=== PATIENT | male | born 1960 | race Caucasian/White ===

== ENCOUNTER 2019-05-31 09:29 | Emergency (ER) | payer MEDICAID, MEDICARE ==
--- OUTSIDE RECORDS SUMMARY | 2019-05-31 09:47 | XMS REPORT | Summary of Care ---
:1960 Author Organization [facility] Address [address] [place] [address] Care Team Providers Name Role Phone Pcp, No Primary Care Provider Unavailable Reason for Visit Reason Comments ED To ED Transfer Encounter Details Date Type Department Care Team Description 05/27/2019 Emergency EMERGENCY DEPARTMENT Josiah Herr, Closed fracture of sternum, unspecified portion of sternum, initial encounter (Primary Dx); [address] [facility] Closed fracture of tenth thoracic vertebra, unspecified fracture morphology, [place] [address] [address] [facility] [phone] [place] [address] [phone] Allergies No Known Allergiesdocumented as of this encounter (statuses as of 05/27/2019) Medications Medication Sig Dispensed Refills Start Date End Date Status HYDROcodone-acetamino Take 1 tablet by 12 tablet 0 05/27/2019 05/30/2019 Active phen (LORTAB) 5-325 mouth every 6 MG per (six) hours as tabletIndications: needed for Pain Closed fracture of (acute) for up to sternum, unspecified 3 days, Max Daily portion of sternum, Dose: 4 tablets initial encounter documented as of this encounter (statuses as of 05/27/2019) Active Problems Problem Noted Date Closed fracture of fourth thoracic vertebra with routine healing 05/27/2019 Closed fracture of body of sternum with routine healing 05/27/2019 documented as of this encounter (statuses as of 05/27/2019) Social History Tobacco Use Types Packs/Day Years Used Date Never Smoker 0 Alcohol Use Drinks/Week oz/Week Comments Yes occ Sex Assigned at Date Recorded Not on file Job Start Date Occupation Industry Not on file Not on file Not on file Travel History Travel Start Travel End No recent travel history available. documented as of this encounter Last Filed Vital Signs Vital Sign Reading Time Taken Comments Blood Pressure 110/73 05/27/2019 9:13 PM EDT Pulse 97 05/27/2019 9:13 PM EDT Temperature 36.8 05/27/2019 9:13 PM EDT C (98.2 F) Respiratory Rate 16 05/27/2019 9:13 PM EDT Oxygen Saturation 99% 05/27/2019 9:13 PM EDT Inhaled Oxygen Concentration - - Weight 90.7 kg (200 lb) 05/27/2019 2:48 PM EDT Height 185.4 cm (6' 1") 05/27/2019 2:48 PM EDT Body Mass Index 26.39 05/27/2019 2:48 PM EDT documented in this encounter Discharge Instructions AttachmentsThe following attachments cannot be sent through Care Everywhere.Bones, How They Heal (Portuguese)Fracture, Neck or Spine (Broken Neck or Spine) (Portuguese)documented in this encounter Plan of Treatment Name Type Priority Associated Diagnoses Date/Time EKG 12 lead ECG STAT 05/27/2019 4:12 PM EDT 1ED EKG Interpretation ECG Routine 05/27/2019 4:38 PM EDT documented as of this encounter Procedures Procedure Name Priority Date/Time Associated Comments Diagnosis XR THORACIC SPINE AP STAT 05/27/2019 8:40 Results for this AND LATERAL PM EDT procedure are in the results section. CT THORACIC SPINE STAT 05/27/2019 6:26 Results for this WITHOUT CONTRAST 79950 PM EDT procedure are in the results section. POCT ISTAT TROPONIN Routine 05/27/2019 5:20 Results for this PM EDT procedure are in the results section. EKG ED PHYSICIAN Routine 05/27/2019 4:38 INTERPRETATION PM EDT EKG 12-LEAD - CMAXX 05/27/2019 4:12 REPORT PM EDT EKG 12-LEAD STAT 05/27/2019 4:12 PM EDT Procedure Note - Interface, Received Via [employer] - 05/27/2019 4 :14 PM EDT Ventricular Rate: 87 BPM Atrial Rate: 87 BPM P-R Interval: 178 ms QRS Duration: 102 ms Q-T Interval: 374 ms QTC Calculation(Bazett): 450 ms P Labelle: 31 degrees R Labelle: -30 degrees T Labelle: 31 degrees : SINUS RHYTHM : LEFT AXIS DEVIATION : ABNORMAL ECG : NO PREVIOUS ECGS AVAILABLE : THIS IS A PRELIMINARY RESULT. documented in this encounter Results XR Thoracic Spine AP and Lateral (05/27/2019 8:40 PM EDT) Specimen Narrative Performed At PROCEDURE INFORMATION: [facility] Exam: XR Thoracic Spine, 2 Views Exam date and time: 05/27/2019 8:46 PM Clinical history: 58 years old, male; Unspecified fracture of sternum, initial encounter for closed fracture; Other: 10 compression FX TECHNIQUE: Imaging protocol: XR of the thoracic spine, 2 views. COMPARISON: CT THORACIC SPINE WITHOUT CONTRAST [id number] 05/27/2019 6:11 PM FINDINGS: Vertebrae: Mild multilevel degenerative change. Slight superior endplate contour deformity of T10 which correlates with the fracture seen on the CT scan on the same day. Slight lower thoracic dextroscoliosis. Soft tissues: Normal. Other findings: Bones appear osteopenic. IMPRESSION: Slight superior endplate contour deformity of T10 which correlates with the fracture seen on the CT scan on the same day. THIS DOCUMENT HAS BEEN ELECTRONICALLY SIGNED BY ROXIE STEPHENSON MD Procedure Note Interface, Received Via [employer] - 05/27/2019 9:06 PM EDT PROCEDURE INFORMATION: Exam: XR Thoracic Spine, 2 Views Exam date and time: 05/27/2019 8:46 PM Clinical history: 58 years old, male; Unspecified fracture of sternum, initial encounter for closed fracture; Other: 10 compression FX TECHNIQUE: Imaging protocol: XR of the thoracic spine, 2 views. COMPARISON: CT THORACIC SPINE WITHOUT CONTRAST [id number] 05/27/2019 6:11 PM FINDINGS: Vertebrae: Mild multilevel degenerative change. Slight superior endplate contour deformity of T10 which correlates with the fracture seen on the CT scan on the same day. Slight lower thoracic dextroscoliosis. Soft tissues: Normal. Other findings: Bones appear osteopenic. IMPRESSION: Slight superior endplate contour deformity of T10 which correlates with the fracture seen on the CT scan on the same day. THIS DOCUMENT HAS BEEN ELECTRONICALLY SIGNED BY ROXIE STEPHENSON MD Performing Organization Address City/State/Zipcode Phone Number [facility] [address] [place] [address] CT Thoracic Spine without Contrast (05/27/2019 6:26 PM EDT) Specimen Impressions Performed At IMPRESSION: [facility] Acute T10 left superior endplate fracture with minimal displacement. Narrative Performed At INDICATION: 58-year-old male with history of T10 endplate fracture on [facility] outside facility imaging. TECHNIQUE: Axial CT images of the thoracic spine were obtained. Sagittal and coronal views were reformatted. Automated dose lowering techniques and/or adjustment according to patient's size were utilized for this examination. COMPARISON: CT thorax spine dated 05/27/2019 3:45 PM available in [email or web address]. FINDINGS: There is an acute left superior endplate fracture with minimal displacement of T10 vertebral body as seen on series 4 image 818 and series 5 image 32. There is no traumatic listhesis involving thoracic spine. There are scattered degenerative changes, most pronounced at the level of T12-L1. Scattered atherosclerotic changes are seen in the visualized portion of aorta. Procedure Note Interface, Received Via [employer] - 05/27/2019 9:38 PM EDT INDICATION: 58-year-old male with history of T10 endplate fracture on outside facility imaging. TECHNIQUE: Axial CT images of the thoracic spine were obtained. Sagittal and coronal views were reformatted. Automated dose lowering techniques and/or adjustment according to patient's size were utilized for this examination. COMPARISON: CT thorax spine dated 05/27/2019 3:45 PM available in [email or web address]. FINDINGS: There is an acute left superior endplate fracture with minimal displacement of T10 vertebral body as seen on series 4 image 818 and series 5 image 32. There is no traumatic listhesis involving thoracic spine. There are scattered degenerative changes, most pronounced at the level of T12-L1. Scattered atherosclerotic changes are seen in the visualized portion of aorta. IMPRESSION: Acute T10 left superior endplate fracture with minimal displacement. Performing Organization Address City/State/Zipcode Phone Number [facility] [address] [place] [address] POCT i-STAT Troponin (05/27/2019 5:20 PM EDT) i-STAT Troponin I 0.00 0.00 - 0.08 ng/mL [facility] POC Specimen Whole Blood Performing Organization Address City/State/Zipcode Phone Number POINT OF CARE TEST [address] [place], [place] [id number] [place] [address] POC [address] [place] [address] EKG 12-LEAD - CMAXX REPORT (05/27/2019 4:12 PM EDT) Narrative Performed At documented in this encounter Visit Diagnoses Diagnosis Closed fracture of sternum, unspecified portion of sternum, initial encounter - Primary Closed fracture of tenth thoracic vertebra, unspecified fracture morphology, initial encounter documented in this encounter Administered Medications Medication Order MAR Action Action Date Dose Rate Site HYDROcodone-acetaminophen Given 05/27/2019 7:30 PM EDT 1 tablet (LORTAB) 5-325 MG per tablet 1 tablet 1 tablet, Oral, Once, Thu05/27/19 at 1915, For 1 dose, Maximum daily dose of acetaminophen is 3,000 mg from all sources in 24 hours., documented in this encounter
[2019-05-31 10:06] VITALS: BP 129/99
--- NOTE | 2019-05-31 10:11 | UC ---
Truncal Trauma HPI - HPI Summary HPI Summary: sternum fracture x 5 days ago s/p fall off the ladder 5 days ago , injury to mid ches went to [facility] and was transferred to [facility] dx with sternum fracture , was placed on pain meds and referral to ortho out of his pain meds , cont. to have pain pain is 5 out of 10 , worse with movements and lifting , better with rest denies any sob , no cough - History Of Current Complaint Chief Complaint: UCMedRefill Stated Complaint: F/U S/P FALL STERNUM FRACTURE Time Seen by Provider: 05/31/19 09:57 Hx Obtained From: Patient Onset/Duration: Sudden Onset, Lasting Days - 5, Still Present Severity Initially: Severe Severity Currently: Moderate Pain Intensity: 5 Mechanism Of Injury: Fall From Height Of: - ladder Aggravating Factor(s): Movement Alleviating factor(s): Rest Associated Signs And Symptoms: Negative: SOB, Chest Pain, Cough, Hematuria, Abdominal Pain, Fever, Nausea, Vomiting - Allergies/Home Medications Allergies/Adverse Reactions: Allergies Allergy/AdvReac Type Severity Reaction Status Date / Time No Known Allergies Allergy Verified 05/31/19 09:53 Home Medications: Home Medications Ibuprofen TAB* [Advil TAB*] 400 mg PO ONCE 05/31/19 [History Confirmed 05/31/19] oxyCODONE/Acetamin 5/325 MG* [Percocet 5/325 TAB*] 1 tab PO Q6H 05/31/19 [ History Confirmed 05/31/19] PMH/Surg Hx/FS Hx/Imm Hx Previously Healthy: Yes - Surgical History Surgical History: Yes Surgery Procedure, Year, and Place: 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 - Family History Known Family History: Negative: Diabetes - Social History Alcohol Use: None Substance Use Type: None Smoking Status (MU): Never Smoked Tobacco Review of Systems All Other Systems Reviewed And Are Negative: Yes Constitutional: Positive: Negative Skin: Positive: Negative Eyes: Positive: Negative ENT: Positive: Negative Is Patient Immunocompromised?: No Physical Exam Triage Information Reviewed: Yes Appearance: Well-Nourished, Pain Distress Vital Signs: Initial Vital Signs Temp 98.7 F 05/31/19 09:49 Pulse 86 05/31/19 09:49 Resp 16 05/31/19 09:49 BP 129/99 05/31/19 09:49 Pulse Ox 99 05/31/19 09:49 Vital Signs Reviewed: Yes Eye Exam: Normal Eyes: Positive: Conjunctiva Clear ENT: Positive: Normal ENT inspection, Hearing grossly normal, Pharynx normal Neck: Positive: Supple, Nontender, No Lymphadenopathy Respiratory: Positive: Chest non-tender, Crackles - right lower lung. Negative : Respiratory distress, Wheezing Cardiovascular: Positive: RRR, No Murmur, Pulses Normal Abdomen Description: Positive: Nontender, Soft. Negative: CVA Tenderness (R), CVA Tenderness (L), Distended, Guarding Musculoskeletal: Positive: Other: - tenderness mid chest Diagnostics - Radiology No standard instances Radiology Interpretation Completed By: Radiologist Summary of Radiographic Findings: chest xray report: FINDINGS: The heart is within normal limits in size. Mediastinal and hilar contours appear within normal limits. The lungs are underinflated. There are small infiltrates at both lung bases which are mainly linear in configuration. No pleural effusion is seen. IMPRESSION: LOW LUNG VOLUMES SMALL BIBASILAR INFILTRATES. Truncal Trauma Course/Dx - Differential Dx/Diagnosis Provider Diagnosis: Sternum fx, Back pain Discharge ED - Sign-Out/Discharge Documenting (check all that apply): Patient Departure All imaging exams completed and their final reports reviewed: Yes - Discharge Plan Condition: Stable Disposition: HOME Prescriptions: HYDROcodone/ACETAMIN 5-325 MG* [[place] 5-325 TAB*] 1 tab PO Q8H PRN #20 tab MDD 3 PRN Reason: Pain - Severe Patient Education Materials: Low Back Strain (ED) Forms: *Work Release Referrals: No Primary Care Phys,NOPCP [Primary Care Provider] - Additional Instructions: fracture of sternum cont. with rest pain meds as needed follow up with [facility] as per your referral no heavy lifting - Billing Disposition and Condition Condition: STABLE Disposition: Home
== END 2019-05-31 10:59 | disposition home or self-care (01) ==
LOC: UCCORT 09:29
DX: S22.20XD Unspecified fracture of sternum, subsequent encounter for fracture with routine healing (principal); M54.9 Dorsalgia, unspecified; R91.8 Other nonspecific abnormal finding of lung field; Z76.0 Encounter for issue of repeat prescription; W11.XXXD Fall on and from ladder, subsequent encounter; S29.9XXD Unspecified injury of thorax, subsequent encounter
CPT/HCPCS: 71046; 99202; G0463